=== PATIENT | male | born 1945 | race Caucasian/White ===

== ENCOUNTER → 2018-04-23 | Day surgery (SDC) | payer OTHER ==
[~2018-04-23] MED LIST: ALBUTEROL SULFATE 2.5 MG/3 ML NEBU. NEB PRN; ATOR40TA59 PO; ATROPINE 0.5 MG/5 ML DISP.SYRIN. IV PRN; CYAN10005 PO; FISH12002 PO; IV NORMAL SALINE 1,000ML 1,000 ML IV SCH; LIDOCAINE 2% PF Vial for OR 5 ML VIAL. ONE; LISI40TA PO; NALOXONE 0.4 MG/ML VIAL. IV PRN; ONDANSETRON PF 4 MG/2 ML VIAL. IV PRN; PANT40TA5 PO; PROCHLORPERAZINE 10 MG/2 ML VIAL. IV PRN; PROPOFOL 10,000 MCG/ML (20ML) VIAL IV ONE; PROPOFOL 40 ML IV ONE
[2018-04-23 11:44] VITALS: BP 153/74
--- NOTE | 2018-04-27 14:10 | PATHOLOGY ---
[facility] Accession Number: [id number] . 01 Material submitted: . PART A: DISTAL ESOPHAGEAL BX PART B: PROXIMAL ESOPHAGUS BX . 01 Clinical history: . Anemia/Case's . 02 Diagnosis: A. 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 . B. Esophageal biopsies, proximal esophagus: - Segments of gastric mucosa showing mild chronic inflammation consistent with gastric heterotopia. [facility]/04/27/2018 . 02 Comment: Sections of the distal esophageal biopsy reveals segments of squamous esophageal mucosa and contiguous columnar-lined mucosa showing mild to focal moderate to marked chronic inflammation and intestinal metaplasia with goblet cells consistent with Case's change. There is no dysplasia or evidence of malignancy. . 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 ([facility] 04/27/2018) . 02 Electronically signed: . Hipolito Weiner MD, Pathologist NPI- [id number] . 01 Gross description: . A. The specimen is received in formalin, labeled "Len Yang, distal esophageal BX's" and consists of 4 fragments of [place] tissue measuring between 0.3 x 0.3 x 0.1 cm and 0.4 x 0.3 x 0.1 cm. They are entirely submitted in A1. . B. The specimen is received in formalin, labeled "Len Yang, proximal esophagus BX" and consists of 3 fragments of soft [place] tissue measuring between 0.2 x 0.2 x 0.1 cm and 0.4 x 0.2 x 0.1 cm. They are entirely submitted in B1. ([facility]; 04/26/2018) SYU/SYU . 02 Pathologist provided ICD-10: K22.70, K20.9 . 02 CPT . 997543, 246248 Specimen Comment: A courtesy copy of this report has been sent to Specimen Comment: [phone], . Specimen Comment: Report sent to / DR DUEÑAS Specimen Comment: A duplicate report has been generated due to demographic updates. Performed at: 01 [facility] [address] [id number] MD Juventino Meier MD Phone: [phone] Performed at: 02 [facility] [address] [place], [place] [id number] MD Hipolito Weiner MD Phone: [phone]
== END | disposition home or self-care (01) ==
LOC: SURG 08:38
PROVIDERS: ATTEND Internal Medicine Gastroenterology
DX: K44.9 Diaphragmatic hernia without obstruction or gangrene (principal); K22.8 Other specified diseases of esophagus; K64.8 Other hemorrhoids; K64.4 Residual hemorrhoidal skin tags; K21.0 Gastro-esophageal reflux disease with esophagitis; Z86.010 Personal history of colon polyps; Z79.899 Other long term (current) drug therapy; E78.5 Hyperlipidemia, unspecified; I12.9 Hypertensive chronic kidney disease with stage 1 through stage 4 chronic kidney disease, or unspecified chronic kidney disease; N18.4 Chronic kidney disease, stage 4 (severe); M19.90 Unspecified osteoarthritis, unspecified site; Q87.81 Alport syndrome; I49.5 Sick sinus syndrome; Z95.0 Presence of cardiac pacemaker; Z98.890 Other specified postprocedural states; Z82.49 Family history of ischemic heart disease and other diseases of the circulatory system; Z80.3 Family history of malignant neoplasm of breast; Z87.891 Personal history of nicotine dependence; Z72.89 Other problems related to lifestyle; Z85.048 Personal history of other malignant neoplasm of rectum, rectosigmoid junction, and anus
CPT/HCPCS: 43239; 45378; 88305; J2704; J2001